=== PATIENT | female | born 1975 | race Caucasian/White ===

== ENCOUNTER → 2018-02-20 | Outpatient (CLI) | payer BC ==
--- NOTE | 2018-02-20 15:23 | KCIC ---
MRI Lumbar Spine without contrast History: Back pain, low back pain, pain into both hips Technique: Multiplanar, multi sequential noncontrast MR imaging was performed of the lumbar spine. Comparison: None Findings: Lumbar vertebral body stature is maintained. There is grade 1 anterior spondylolisthesis L4-5. There is variable moderate to severe degenerative disc disease at L4-5, on the right at L3-4, and on the left L5-S1. 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 There is minimal posterior L3-4 as well as left L5-S1 endplate edema likely reactive/degenerative in etiology. There is also edema of the bilateral L4 and L5 pedicles most likely reactive/degenerative in etiology. There is hemangioma of the T12 vertebral body. Conus terminates at the superior aspect of L2. There is mild lumbar levoscoliosis. There is some heterogeneity of the visualized liver otherwise difficult to characterize. L2-L3: Spinal canal and neural foramina are adequate. There is mild buckling of the ligamentum flavum and facet degenerative change. Small cystic foci of the extraforaminal regions are likely due to small nerve root sleeve cysts. L3-L4: There is mild to moderate right and minimal left facet degenerative change. There is mild buckling of the ligamentum flavum and prominence of posterior epidural fat. There is very minimal posterior bulge somewhat more eccentric to the right lateral recess. There is mild narrowing of the far lateral recesses greater on the right. There is mild narrowing of the right neural foramen. Bulge is near the extraforaminal right L3 nerve root without significant impingement. L4-L5: There is mild buckling of the ligamentum flavum and mild to moderate right and mild left facet degenerative change. There is mild partial uncovering of the posterior aspect of the disc due to spondylolisthesis. There is mild narrowing of the right lateral recess. There is mild narrowing of the right neural foramen, left neural foramen adequate. L5-S1: There is minimal bulge. There is superimposed shallow broad protrusion more eccentric to the far lateral recess near the descending left S1 nerve root without displacement, very mild narrowing of the far left lateral recess. There is moderate to severe narrowing of the left neural foramen with contact of the undersurface exiting left L5 nerve root by disc osteophyte complex and protrusion, also contacted in the extraforaminal region. The right neural foramen is adequate. Impression: 1. Broad protrusion at L5-S1 eccentric to left lateral recess contacts descending left S1 nerve root, very mild narrowing the far lateral recess. There is also moderate to severe narrowing of the left L5-S1 neural foramen with contact exiting left L5 nerve root extending to proximal extraforaminal region. There is other mild narrowing of the lateral recesses such as on the right at L4-5 and bilaterally at L3-4 as described. 2. There is multilevel variable degenerative disc disease L3-4 to L5-S1. There is grade 1 anterior spondylolisthesis at L4-5. There is edema of the bilateral L4 and L5 pedicles more likely reactive/degenerative in etiology. There is mild lumbar levoscoliosis. There is other overall mild neural foramina compromise such as on the right at L3-4 and L4-5. 3. There is nonspecific mild heterogeneity of the visualized liver otherwise difficult to characterize. Electronically signed by: Angel Blanco MD (02/20/2018 3:19 PM) [facility]
== END | disposition home or self-care (01) ==
LOC: KCIC MRI 14:08
PROVIDERS: ATTEND Family Medicine
DX: M51.27 Other intervertebral disc displacement, lumbosacral region (principal); M48.08 Spinal stenosis, sacral and sacrococcygeal region; M43.16 Spondylolisthesis, lumbar region; R60.9 Edema, unspecified
CPT/HCPCS: 72148

== ENCOUNTER → 2020-10-09 | Outpatient (CLI) | payer BC ==
[~2020-10-09] MED LIST: LIDOCAINE 1% Multi-Dose 20 ML VIAL. INJ ONE
--- NOTE | 2020-10-09 10:23 | RAD ---
EXAM: 1. ULTRASOUND-GUIDED CORE BIOPSY RIGHT BREAST WITH CLIP PLACEMENT. 2. POSTCLIP DIAGNOSTIC RIGHT MAMMOGRAPHY. HISTORY: Right breast mass. Ultrasound-guided biopsy is requested. FINDINGS: The procedure along with its risks and benefits were explained to the patient. She agreed to proceed. A timeout procedure was performed. Sonographic evaluation of the right breast redemonstrates the lesion of concern. It is seen as an int raductal mass at the subareolar right 9:00 position. The overlying skin was sterilely prepped and inf iltrated with 1% lidocaine for local anesthesia. Under ultrasound guidance, 3 core needle specimens o f the target lesion were obtained using a 14-gauge biopsy device. These were submitted in formalin. A postbiopsy clip was placed under ultrasound guidance. Pressure was held to hemostasis. There were no immediate complications. Full-field digital mammographic views of the right breast were obtained in CC and MLO projections and interpreted on a dedicated workstation. They demonstrate the clip in correspondence with the target lesion. IMPRESSION: 1. Successful ultrasound-guided right breast biopsy with clip placement. 2. The postbiopsy clip corresponds with the target lesion. Electronically signed by: Mary Barrera MD (10/09/2020 10:20 AM) [id number]
--- NOTE | 2020-10-10 14:07 | PATHOLOGY ---
[facility] Accession Number: [id number] . 01 Material submitted: . breast - RIGHT BREAST MASS 9:00 RETROAREOLAR 1.0CM. Modifiers: right . 01 Clinical history: . RIGHT BREAST MASS 9:00 SUBAREOLAR RIGHT BREAST BIOPSY . 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 LBQ 10/10/2020 1200 Local . 02 Comment: Sections of the right breast retroareolar mass 9:00 needle biopsy reveal segments of breast tissue. There is focal stromal fibrosis, in addition to portions of a dilated duct/cyst containing eosinophilic vacuolated material. There is no atypia or evidence of malignancy. (JPM/db; 10/10/2020) . 02 Electronically signed: . Fidencio Penn MD, Pathologist NPI- [id number] . 01 Gross description: . The specimen is received in formalin, labeled "[place], right breast 9:00 retroareolar". The specimen is additionally labeled on the requisition as, "right breast 9:00 retroareolar". Received are multiple needle cores of fibrofatty tissue measuring 1.9 x 1.0 x 0.2 cm in aggregate dimensions. The specimen is submitted entirely in cassettes A1 through A3. The cold ischemic time is 1 minute. The total formalin fixation time is 12 hours and 34 minutes. (CAA; 10/09/2020) QAC/QAC 10/10/2020 1259 Local . 02 Pathologist provided ICD-10: N60.31 . 02 CPT . 623960 Specimen Comment: A courtesy copy of this report has been sent to [phone], [phone] Specimen Comment: [id number] Specimen Comment: Report sent to / DR ZAVALETA Specimen Comment: A duplicate report has been generated due to demographic updates. Performed at: [address] [facility] [id number] MD Cain Reaves MD Phone: [phone] Performed at: [address] [id number] MD Fidencio Penn MD Phone: [phone]
== END | disposition home or self-care (01) ==
LOC: US 08:32
PROVIDERS: ATTEND Surgery
DX: N63.13 Unspecified lump in the right breast, lower outer quadrant (principal); R92.8 Other abnormal and inconclusive findings on diagnostic imaging of breast
CPT/HCPCS: 19083; 77065; A4648; 88305